=== PATIENT | male | born 1990 | race Caucasian/White ===

== ENCOUNTER 2024-08-05 08:56 | Inpatient (IN) | payer MEDICAID ==
[~2024-08-05] VITALS: Ht 172.7 cm; Wt 95.0 kg
[2024-08-05 11:21] VITALS: BP 136/102; PULSE 106; RESP 16; TEMP 97.9; O2SAT 98
[2024-08-05] MEDS ORDERED: acetaminophen 325mg tablet PO PRN ×2 (11:55)
[2024-08-05] MEDS ORDERED: mag hydrox/Alum hydrox/simeth 30ml oral suspension PO PRN (11:55)
[2024-08-05] MEDS ORDERED: diphenhydrAMINE 25mg capsule PO PRN (11:55)
[2024-08-05] MEDS ORDERED: chlorproMAZINE 25mg tablet PO PRN (11:55)
[2024-08-05] MEDS ORDERED: loperamide 2mg capsule PO PRN (11:55)
[2024-08-05] MEDS ORDERED: traZODone 50mg tablet PO PRN (11:55)
[2024-08-05] MEDS ORDERED: magnesium hydroxide 30ml (MOM) UD suspension PO PRN (11:55)
[2024-08-05] MEDS ORDERED: LAMO200T2 PO (12:45)
[2024-08-05] MEDS ORDERED: OLAN2.5T3 PO (12:45)
[2024-08-05] MEDS: nicotine 21mg patch - 24 hr TD SCH (12:59)
[2024-08-05] MEDS: NICOTINE POLACRILEX 2 MG LOZENGE BC PRN (12:59)
[2024-08-05 13:41] VITALS: RESP 16; O2SAT 98
[2024-08-05 14:43] VITALS: BP 128/98; PULSE 120
--- NOTE | 2024-08-05 16:05 | HISTORY AND PHYSICAL ---
History & Physical - Blank History and Physical CHIEF COMPLIANT GRAVELY DISABLED HISTORY OF PRESENT ILLNESS 34-year-old at [facility] on a 5150 by law enforcement for gravely disabled. CHART REVIEW Pt placed on 5150 for gravely disabled due to inability to safety plan. He's responding to internal stimuli and the voices are telling him not to take meds and that "the energies" will provide. He is unsure why he needs to be here. Pt has a history of Bipolar 1 and Bipolar 2 per patient states diagnosed at separate times, the earliest in his teens. He lives alone in an apartment in [place] which he maintains. He's currently on unemployment as he put in his 2 weeks notice to go on this quest from God for solitude and healing of his mental health difficulties. 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 Pt reported that he was driving to [place] on a spiritual journey. He want to get off all of his medications and is pursuing healing of his mental health issues. Pt reported he has been diagnosed with Bipolar with Psychotic features. And he reported that he feels like he is in a manic episode but then corrected himself and stated, I will use those terms for the point of this conversation Pts car was impounded a week ago as he was pulled over by Police in [place], [place].Pt reported he wasnt drinking, sleeping or eating. His toxic screen showed he had been using THC and drinking ETOH. He has been charge with a DUI and his car was impounded. ASSESSMENT The patient was interviewed in observation room. The patient was actively resting in bed with eyes closed. The patient endorses "all over." The patient endorses "I am having trouble getting everything." "I am not sure when it started." Yes I hear voices." telling me all sorts of stuff between me and Avril." "Avril Yepez she is not talking directly but her spirit is." "I feel like I am redirected back into myself by Avril's spirit." "I "sometimes" see things other people cant see. "I can see the inside of my belly kind of." "I recently stopped taking them (medication) because I wanted to go without them.' I stopped seeing my psychiatrist when I stopped taking my meds." Denies SI. Denies HI. The patient is stable no acute distress noted. The patient is responding to auditory hallucinations, inattentive and disengaged during session. The patient is noted talking to himself during session. Per staff report patient is medication compliant. Will continue daily assessment and adjusting treatment as needed. Closely monitor behavior and response to medication during hospitalization. Discussed treatment plan with patient. ASE/risks and benefits of chosen treatment. He verbalized understanding and consented to treatment. REVIEW OF LABS URINE TOX SCREEN NEGATIVE URINALYSIS NEGATIVE SODIUM 139 POTASSIUM 3.1 CHLORIDE 100 ANION GAP 12 BUN 20 CREATININE 0.90 CALCIUM 9.6 ALBUMIN 4.1 ALT 85 AST 69 IP 62 TSH 0.731 WBC 9.11 RBC 5.02 HEMOGLOBIN 14.7 HEMATOCRIT 42.6 PLATELET 261 MENTAL STATUS EXAM APPEARANCE: AVERAGE HEIGHT OBESE MALE.BUZZED HAIRCUT.FULL FACIAL HAIR.WEARING GREEN SCRUBS. SPEECH: CIRCUMSTANTIAL, NON-SENSUAL EYE CONTACT: AVOIDANT ATTENTION: DISTRACTED AFFECT: CONSTRICTED MOOD: IRRITABLE, ANXIOUS ORIENTATION IMPAIRMENT: NONE MEMORY IMPAIRMENT: NONE HALLUCINATIONS: AUDITORY, VISUAL SUICIDALITY: NONE DELUSIONS: TALKING TO AVRIL YEPEZ'S SPIRIT, RELIGIOUSLY PREOCCUPIED BEHAVIOR: GUARDED JUDGMENT: POOR INSIGHT: POOR TREATMENT Restart OLANZAPINE 5 MG P.O. Q.H.S. Restart LAMICTAL 200 MG P.O. Q.H.S. Restart TENEX 1MG PO QHS Monitoring by Staff, Milieu, Group, and Individual counseling as needed -- According to the [place] Suicide Assessment the above named patient is on Q15 MINUTE CHECKS. [id number]- Patient is unable to formulate a plan to safely meet their basic needs of food, clothing, and longterm due to the severity of their mental illness. We are still titrating medications to an effective dose while ma intaining a therapeutic environment to prevent decompensation and readmission. REVIEW OF Clinical notes 200 MG P.O. Q.H.S. RN notes [X] PCT documentation [X] SW notes Labs [ X] Medications [X] Care trends/care activity [X] Vitals [X] DISCUSSION WITH dough braker [X] Staff SW [X] Treatment Team [X] DISCHARGE UNSURE AT THIS TIME. DISCHARGE HOME ONCE STABLE. Past Psychiatric History Past Psychiatric History MULTIPLE PSYCHIATRIC MENTAL HEALTH HOSPITALIZATIONS BIPOLAR 1 WITH PSYCHOTIC FEATURES ADHD Past Medical History Past Medical History SEE MEDICAL H & P Past Surgical History Past Surgical History DENIES ANY SURGICAL HISTORY Substance Abuse History Substance Abuse History MARIJUANA-OCCASIONALLY ALCOHOL-OCCASIONALLY TOBACCO-OCCASIONALLY ILLICIT DRUGS-DENIES KRATOM-ON AND OFF FOR 4 YEARS Personal History Current Living Situation [facility] Marital & Relationship History NEVER .NO CHILDREN.SINGLE Sexual History DEFER Occupational History UNEMPLOYED Social Activity B[place] 1 [employer] GR[employer] H[employer] Legal History DENIES ANY LEGAL HISTORY History DENIES ANY HISTORY Developmental History Childhood [id number] PHYSICAL-DAD Assessment/Plan Problems/Diagnosis: (1) Bipolar disorder with psychotic features (2) Gravely disabled (3) Drug abuse (4) Poor impulse control (5) Hallucination (6) Paranoid ideation CODING VISIT-PSYCHIATRY Date of Service: August 05, 2024 Billing Provider: RADHA CURRY APRN Psych Common Visit Codes: [id number] INP/OBS CARE (High) RADHA CURRY APRN August 05, 2024 16:05
[2024-08-05 19:00] VITALS: RESP 16; O2SAT 98
[2024-08-05 20:00] VITALS: BP 144/97; PULSE 113; RESP 16; TEMP 98.6; O2SAT 98
[2024-08-05] MEDS: OLANZAPINE 5 MG TABLET PO SCH (21:00)
[2024-08-05] MEDS: lamoTRIgine 100mg tablet PO SCH (21:00)
[2024-08-05] MEDS: guanFACINE 1 mg tablet PO SCH (21:00)
[2024-08-06 07:30] VITALS: BP 151/109; PULSE 90; RESP 16; TEMP 97.5; O2SAT 100
[2024-08-06 08:00] VITALS: RESP 16; O2SAT 100
[2024-08-06] MEDS ORDERED: nicotine 21mg patch - 24 hr TD SCH (08:00)
--- NOTE | 2024-08-06 13:07 | PROGRESS NOTE ---
Progress Note Dictate Providers to CC ~ Central Line/PICC still needed: N\\A Antibiotic Ordered?: No MRSA Education MRSA Education Provided to pt: No Objective Vitals Vital Signs Date Time Temp Pulse Resp B/P (MAP) Pulse Ox O2 Delivery O2 Flow Rate FiO2 08/06/24 08:00 16 100 Room Air 08/06/24 07:30 97.5 90 151/109 (123) Counseling Services Smoking & Tobacco Cessation: > 10 Minutes Problem\\Assessment\\Plan Problems/Diagnosis: (1) Bipolar disorder with psychotic features (2) Gravely disabled (3) Drug abuse (4) Hallucination (5) Poor impulse control (6) Paranoid ideation Psychiatrist's Progress Note Date of Service: August 06, 2024 Notes CHART REVIEW Pt was brought in by brad OATES the hold states he was walking around private property and was unable to talk with the officers about the day or time or how to contact family. conduit worker Abiel came to evaluate client last night and was able to due to client not responsive to questions. Client presented dirty and was able to wake client and introduced myself client would not make eye contact and flat affect. conduit worker asked open in the questions that would sometimes answer what they not yes or no. conduit worker experienced client smiling and laughing as he looked down at the bed. The nurse stated that client before worker came said he does have auditory and visual hallucinations. The worker asked client if someone is telling him not to talk to me. He shook his head yes. Then asked if that person was in the room he shook his head no. Client was not able to communicate when asked about the orientation of day, or time or where he was. Also client could not respond to how he got to assist [facility] since he is from [place]. Client's attention was inattentive and not engaging. Client is unable to safely plan in client meets criteria for 5150 hold for danger to self and gravely disabled. ASSESSMENT The patient was interviewed in observation room. The patient was actively resting in bed with eyes closed. The patient endorses "I feel like mixed moods." "I feel a little bit of everything in away." "I do not think I need the meds so I been refusing them and I don't think they are giving me the correct medications." "I think it is other castillo to be why I am like this." When asked about the voices the patient endorses "Pretty normal I would say." "I don't see things as much we always see things rather it it is your head or with your eyes." When asked about suicidal ideation the patient endorses 'When I get fru strated I have those thoughts but that doesn't mean I have to act on them." Denies SI. Denies HI. "I have a good amount of anxiety going on but I also do not want to relay on gabapentin I want to find other ways to deal with my anxiety." Patient endorses adequate sleep and food intake. The patient is stable no acute distress noted. The patient presents a s a bit anxious, inattentive and disengaged during session. Per staff report patient has been medication noncompliant. Per staff report patient is medication compliant. Will continue daily assessment and adjusting treatment as needed. Closely monitor behavior and response to medication during hospitalization. Results Of any Diagn. Testing REVIEW OF LABS URINE TOX SCREEN NEGATIVE URINALYSIS NEGATIVE SODIUM 139 POTASSIUM 3.1 CHLORIDE 100 ANION GAP 12 BUN 20 CREATININE 0.90 CALCIUM 9.6 ALBUMIN 4.1 ALT 85 AST 69 IP 62 TSH 0.731 WBC 9.11 RBC 5.02 HEMOGLOBIN 14.7 HEMATOCRIT 42.6 PLATELET 261 Appearnace: Disheveled (AVERAGE HEIGHT OBESE MALE.BUZZED HAIRCUT.FULL FACIAL HAIR.WEARING GREEN SCRUBS.) Speech: Pressured, Other (CIRCUMSTANTIAL) Eye Contact: Intense Motor Activity: Normal Affect: Constricted Mood: Anxious, Irritable Orientation Impairment: None Memory Impairment: None Attention: Normal Hallucinations: Auditory, Visual Other: None Suicidality: None Homicidality: None Delusions: Caodaism Behavior: Agitated, Paranoid Insight: Poor Judgment: Poor Treatment The patient is reluctant about taking medications at this time. May need to be Riesed if medication noncompliance continues. OLANZAPINE 5 MG P.O. Q.H.S. LAMICTAL 200 MG P.O. Q.H.S. TENEX 1MG PO QHS Monitoring by Staff, Milieu, Group, and Individual counseling as needed -- According to the [place] Suicide Assessment the above named patient is on Q15 MINUTE CHECKS. [id number]- Patient is unable to formulate a plan to safely meet their basic needs of food, clothing, and half-way due to the severity of their mental illness. We are still titrating medications to an effective dose while maintaining a therapeutic environment to prevent decompensation and readmission. REVIEW OF Clinical notes RN notes [X] PCT documentation [X] SW notes Labs [ X] Medications [X] Care trends/care activity [X] Vitals [X] DISCUSSION WITH flight engineer manager [X] Staff SW [X] Treatment Team [X] Discharge UNSURE AT THIS TIME. DISCHARGE HOME ONCE STABLE. CODING VISIT-PSYCHIATRY Date of Service: August 06, 2024 Billing Provider: RADHA CURRY APRN Psych Common Visit Codes: [id number] INP/OBS CARE(Mod) RADHA CURRY APRN August 06, 2024 13:07
[2024-08-06] MEDS: LORazepam 1 MG tablet PO ONE (13:47)
--- NOTE | 2024-08-06 15:47 | HISTORY AND PHYSICAL ---
History & Physical Providers to ~ History of Present Illness Reason for Admit\\Complaint: Psychosis History of Present Illness Gustavo Cruz is a 34-year-old male with past medical history of bipolar disorder, ADHD, hypertension who was brought to the ED on 5150 hold as patient was walking around private property and was unable to talk with the police officers about the day or time or how to contact his family. Patient was evaluated by the alcoholism worker or patient was on able to respond to any questions. At the time of my assessment, patient is A&Ox3. Patient denies prior ND/CAD, CVA, cardiac arrhythmia, DVT/PE, or GIB. Patient reports intermittent auditory and visual hallucinations but denies SI, HI, chest pain, palpitations, shortness of breath, abdominal pain, n/v/d. Patient is admitted to [facility] for further management of psychosis. Allergies: Coded Allergies: lurasidone (Unverified Allergy, Unknown, 08/05/24) per dad patient had poor reaction to this medication Home Medications Home Medications Active Reported Zyprexa (Olanzapine) 2.5 Mg Tablet 1 Tab PO DAILY Lamictal* (Lamotrigine) 200 Mg Tablet 1 Tab PO DAILY Past Medical History Past Medical History Bipolar disorder ADHD Past Surgical History Surgical History Comment Denies Past Social History Social History Comment Alcohol: Rarely Tobacco: Current smoker, 15 pack year history Illicit drug use: Reports "all kinds of things including opioid, long time ago, denies current use Living situation: Lives at home alone ROS ROS Other than positives in HPI, all 14 review of systems are negative Exam Vitals: Vital Signs Date Time Temp Pulse Resp B/P (MAP) Pulse Ox O2 Delivery O2 Flow Rate FiO2 08/06/24 08:00 16 100 Room Air 08/06/24 07:30 97.5 90 151/109 (123) General: A&Ox 3, NAD HEENT: Normocephalic, PERRLA Neck: Supple, trachea midline, no JVD Chest: Clear to auscultation bilaterally Cardiovascular: RRR, S1&S2 Abdomen: Soft and nontender Extremities: No cyanosis/clubbing/or edema Central Nervous System: CN II-XII intact, no focal deficits Musculoskeletal: No paraspinal muscle tenderness, no muscle spasm Skin: Warm and intact Counseling Services Smoking & Tobacco Cessation: > 10 Minutes Additional Plan # Psychosis # Bipolar disorder -on olanzapine, lamotrigine -continue management under psychiatrist # HTN # Hx substance abuse -start losartan -follow UDS, baseline labs # Nicotine dependence -nicotine patch -I spent a total of 16 minutes on smoking cessation education. I provided extensive counseling regarding smoking cessation. Hospitalist team will continue to follow for patient's medical needs Date of Service: August 06, 2024 Billing Provider: DM TAYLOR Common Visit Codes: [id number] INP/OBS CARE (HIGH) DM TAYLOR August 06, 2024 15:47
[2024-08-06 15:59] LABS: CHOL/HDL RATIO 3.2 (0.00-4.99); CHOLESTEROL 147 MG/DL (0-200); HDL CHOLESTEROL 46 MG/DL (35-60); LDL CHOLESTEROL 72 MG/DL (50-100); TRIGLYCERIDES 297 MG/DL (20-135)
[2024-08-06] MEDS: losartan 50mg tablet PO ONE (16:08)
[2024-08-06 19:00] VITALS: RESP 16; O2SAT 95
[2024-08-06 19:51] LABS: URINE AMPHETAMINE SCREEN NEGATIVE (Neg); URINE BARBITUATE SCREEN NEGATIVE (Neg); URINE BENZODIAZEPINES SCREEN NEGATIVE (Neg); URINE CANNABINOID SCREEN NEGATIVE (Neg); URINE COCAINE SCREEN NEGATIVE (Neg); URINE METHADONE SCREEN NEGATIVE (Neg); URINE OPIATE SCREEN NEGATIVE (Neg); URINE PHENCYCLIDINE SCREEN NEGATIVE (Neg)
[2024-08-06 20:00] VITALS: BP 118/69; PULSE 101; RESP 16; TEMP 97.6; O2SAT 95
[2024-08-07] MEDS: hydrOXYzine 25 MG tablet PO PRN (05:21)
[2024-08-07 07:00] VITALS: BP 125/85; PULSE 99; RESP 16; TEMP 97.6; O2SAT 97
[2024-08-07] MEDS: losartan 50mg tablet PO SCH (07:53)
[2024-08-07 08:00] VITALS: RESP 16; O2SAT 97
[2024-08-07] MEDS ORDERED: nicotine 7mg patch - 24hr TD SCH (08:00)
[2024-08-07 08:48] LABS: BASOPHILS # (AUTO) 0.1 X10'3 (0-0.2); BASOPHILS % (AUTO) 0.8 % (0-1); EOSINOPHILS # (AUTO) 0.3 X10'3 (0-0.9); HEMOGLOBIN 15.9 g/dl (14.0-17.9); LYMPHOCYTES # (AUTO) 1.6 X10'3 (1.1-4.8); MEAN CORPUSCULAR HEMOGLOBIN 29.6 PG (27.0-31.0); MEAN CORPUSCULAR HGB CONC 33.9 g/dL (33.0-36.5); MEAN CORPUSCULAR VOLUME 87.3 FL (78-98); MEAN PLATELET VOLUME 8.4 FL (7.4-10.4); MONOCYTES # (AUTO) 0.5 X10'3 (0-0.9); MONOCYTES % (AUTO) 6.4 % (2-12); NEUTROPHILS # (AUTO) 4.6 X10'3 (1.8-7.7); NEUTROPHILS % (AUTO) 65.8 % (42-75); PLATELET COUNT 266 X10'3 (140-440); RED BLOOD COUNT 5.38 X10'6 (4.70-6.10); RED CELL DISTRIBUTION WIDTH 13.6 % (11.5-14.5); WHITE BLOOD COUNT 7.1 X10'3 (4.5-11.0)
[2024-08-07 09:36] LABS: ALANINE AMINOTRANSFERASE 226 U/L (12-78); ALBUMIN 3.9 G/DL (3.4-5.0); ALBUMIN/GLOBULIN RATIO 1.3 (1.1-1.5); ANION GAP 7 (8-16); ASPARTATE AMINO TRANSFERASE 75 U/L (10-37); BILIRUBIN,TOTAL 0.5 MG/DL (0.1-1.0); BLOOD UREA NITROGEN 11 MG/DL (7-18); BUN/CREATININE RATIO 12.6 (10.0-20.0); CALCIUM 8.9 MG/DL (8.5-10.1); CHLORIDE 105 MMOL/L (99-107); CREATININE 0.87 MG/DL (0.60-1.10); GLUCOSE 102 MG/DL (70-104); POTASSIUM 4.3 MMOL/L (3.5-5.1); SODIUM 137 MMOL/L (135-145); TOTAL CARBON DIOXIDE 24.6 MMOL/L (24-32); TOTAL PROTEIN 6.9 G/DL (6.4-8.2); eCRCL 115 ML/MIN; eGFR > 90 ML/MIN
[2024-08-07 10:03] LABS: ALKALINE PHOSPHATASE 69 IU/L (46-116)
--- NOTE | 2024-08-07 11:18 | PROGRESS NOTE ---
Progress Note Dictate Providers to CC ~ Central Line/PICC still needed: N\\A Antibiotic Ordered?: No MRSA Education MRSA Education Provided to pt: No Objective Vitals Vital Signs Date Time Temp Pulse Resp B/P (MAP) Pulse Ox O2 Delivery O2 Flow Rate FiO2 08/07/24 08:00 16 97 Room Air 08/07/24 07:53 99 08/07/24 07:00 97.6 125/85 (98) Lab Results: 08/07/24 0820 08/07/24 0837 Counseling Services Smoking & Tobacco Cessation: > 10 Minutes Problem\\Assessment\\Plan Problems/Diagnosis: (1) Bipolar disorder with psychotic features Psychiatrist's Progress Note Date of Service: August 07, 2024 Notes CHART REVIEW Pt placed on 5150 for gravely disabled due to inability to safety plan. He's responding to internal stimuli and the voices are telling him not to take meds and that "the energies" will provide. He is unsure why he needs to be here. Pt has a history of Bipolar 1 and Bipolar 2 per patient states diagnosed at separate times, the earliest in his teens. He lives alone in an apartment in [place] which he maintains. He's currently on unemployment as he put in his 2 weeks notice to go on this quest from God for solitude and healing of his mental health difficulties. 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 Pt reported that he was driving to [place] on a spiritual journey. He want to get off all of his medications and is pursuing healing of his mental health issues. Pt reported he has been diagnosed with Bipolar with Psychotic features. And he reported that he feels like he is in a manic episode but then corrected himself and stated, I will use those terms for the point of this conversation Pts car was impounded a week ago as he was pulled over by Police in [place], [place].Pt reported he wasnt drinking, sleeping or eating. His toxic screen showed he had been using THC and drinking ETOH. He has been charge with a DUI and his car was impounded. ASSESSMENT The patient was interviewed in observation room. The patient was actively pacing hallway. The patient endorses "I am feeling pretty well today." "I had side effects when I took the tenex; I can only take guanfacine ER." Despite me calling the patient's preferred pharmacy and verified tenex dose and frequency with him presents, the patient is still reluctant and taking Tenex. "I am feeling a lot better; so that is good news." "I pace even when I am not manic." "When I pray I do hear voices even when I am manic or not." "I do feel some of the hypomanic energy but it is low energy." "I do see things in my head a lot and I believe that is pretty human." "It is a real thing that i talk to Ivonne Bartholomew's spirit, that is normal." "I believe I will be locked in here until I change my spiritual beliefs." "I am not manic I am on a spiritual voyage." I do not feel I need meds I just need to continue my spiritual voyage with the Shamans." Denies SI. Denies HI. The patient is stable no acute distress noted. The patient presents as a bit anxious, delusional, religiously preoccupied, and disengaged during session. The patient noted wringing of the hands. The patient seems to be minimizing his symptoms. Per staff report patient has been medication compliant. Will continue daily assessment and adjusting treatment as needed. Closely monitor behavior and response to medication during hospitalization. Results Of any Diagn. Testing REVIEW OF LABS URINE TOX SCREEN NEGATIVE URINALYSIS NEGATIVE SODIUM 139 POTASSIUM 3.1 CHLORIDE 100 ANION GAP 12 BUN 20 CREATININE 0.90 CALCIUM 9.6 ALBUMIN 4.1 ALT 85 AST 69 IP 62 TSH 0.731 WBC 9.11 RBC 5.02 HEMOGLOBIN 14.7 HEMATOCRIT 42.6 PLATELET 261 Appearnace: Disheveled (AVERAGE HEIGHT OBESE MALE.BUZZED HAIRCUT.FULL FACIAL HAIR.WEARING GREEN SCRUBS) Speech: Pressured (DISORGANIZED), Other (CIRCUMSTANTIAL) Eye Contact: Other (INTERMITTENT) Motor Activity: Normal Affect: Constricted Orientation Impairment: None Memory Impairment: None Attention: Distracted Hallucinations: Auditory, Visual Other: None Suicidality: None Homicidality: None Delusions: Lutheran Behavior: Hyperactive Insight: Poor Judgment: Poor Treatment Increase OLANZAPINE 10 MG P.O. Q.H.S. LAMICTAL 200 MG P.O. Q.H.S. TENEX 1MG PO QHS Monitoring by Staff, Milieu, Group, and Individual counseling as needed -- According to the [place] Suicide Assessment the above named patient is on Q15 MINUTE CHECKS. [id number]- Patient is unable to formulate a plan to safely meet their basic needs of food, clothing, and correction due to the severity of their mental illness. We are still titrating medications to an effective dose while maintaining a therapeutic environment to prevent decompensation and readmission. REVIEW OF Clinical notes RN notes [X] PCT documentation [X] SW notes Labs [ X] Medications [X] Care trends/care activity [X] Vitals [X] DISCUSSION WITH therapeutic support staff [X] Staff SW [X] Treatment Team [X] Discharge UNSURE AT THIS TIME. DISCHARGE HOME ONCE STABLE. CODING VISIT-PSYCHIATRY Date of Service: August 07, 2024 Billing Provider: RADHA CURRY APRN Psych Common Visit Codes: [id number] INP/OBS CARE(Mod) RADHA CURRY APRN August 07, 2024 11:18
[2024-08-07] MEDS: guanFACINE 1 mg tablet PO SCH (14:57)
[2024-08-07 19:28] VITALS: RESP 16; O2SAT 100
[2024-08-07 19:29] VITALS: BP 106/66; PULSE 91; RESP 16; TEMP 98; O2SAT 98
[2024-08-07] MEDS: OLANZAPINE 5 MG TABLET PO SCH (20:32)
[2024-08-08 07:30] VITALS: BP 126/82; PULSE 88; RESP 16; TEMP 97.6; O2SAT 99
--- NOTE | 2024-08-08 07:45 | PROGRESS NOTE ---
Daily Progress Note Providers to CC ~ Antibiotic Timeout Antibiotic Ordered?: No Subjective CHIEF COMPLAINT NONE REVIEW OF SYSTEMS NEGATIVE FOR ALL 10 SYSTEMS REVIEWED Objective Vital Signs Date Time Temp Pulse Resp B/P (MAP) Pulse Ox O2 Delivery O2 Flow Rate FiO2 08/07/24 19:29 98.0 91 16 106/66 (79) 98 Room Air Result Diagram: 08/07/24 0820 08/07/24 0837 PATIENT IS ALERT AND ORIENTED X4 IN NO ACUTE DISTRESS AMBULATING HEENT NORMOCEPHALIC NONTRAUMATIC HEAD PERRLA. EOMI. CVS FIRST AND SECOND HEART SOUNDS REGULAR RATE RHYTHM NO MURMURS GALLOPS OR RUBS RESPIRATORY SYSTEM IS CLEAR TO AUSCULTATE BILATERALLY NO RALES RHONCHI CRACKLES OR WHEEZING ABDOMEN IS SOFT SCAPHOID BOWEL SOUNDS ARE POSITIVE NONTENDER NONDISTENDED EXTREMITIES NO CLUBBING CYANOSIS OR EDEMA Problem\Assessment\Plan Additional Plan # Psychosis # Bipolar disorder -on olanzapine, lamotrigine -continue management per psychiatrist # HTN -well controlled # Hx substance abuse -start losartan -follow UDS, baseline labs # transaminitis- Monitor LFTs Check acute hep panel Possibly secondary to antipsychotics Check abdominal ultrasound # Nicotine dependence -nicotine patch Date of Service: August 08, 2024 Billing Provider: SUDEEP FLORENCE MD Common Visit Codes: [id number] INP/OBS CARE(LOW) SUDEEP FLORENCE MD August 08, 2024 07:45
[2024-08-08 08:00] VITALS: RESP 16; O2SAT 99
--- NOTE | 2024-08-08 14:13 | PROGRESS NOTE ---
Progress Note Dictate Providers to CC ~ Central Line/PICC still needed: N\\A Antibiotic Ordered?: No MRSA Education MRSA Education Provided to pt: No Objective Vitals Vital Signs Date Time Temp Pulse Resp B/P (MAP) Pulse Ox O2 Delivery O2 Flow Rate FiO2 08/08/24 08:16 88 08/08/24 07:30 97.6 16 126/82 (97) 99 08/07/24 19:29 Room Air Lab Results: 08/07/24 0820 08/07/24 0837 Problem\\Assessment\\Plan Problems/Diagnosis: (1) Bipolar disorder with psychotic features (2) Gravely disabled (3) Drug abuse (4) Hallucination (5) Poor impulse control (6) Paranoid ideation Psychiatrist's Progress Note Date of Service: August 08, 2024 Notes CHART REVIEW Pt placed on 5150 for gravely disabled due to inability to safety plan. He's responding to internal stimuli and the voices are telling him not to take meds and that "the energies" will provide. He is unsure why he needs to be here. Pt has a history of Bipolar 1 and Bipolar 2 per patient states diagnosed at separate times, the earliest in his teens. He lives alone in an apartment in [place] which he maintains. He's currently on unemployment as he put in his 2 weeks notice to go on this quest from God for solitude and healing of his mental health difficulties. 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 Pt reported that he was driving to [place] on a spiritual journey. He want to get off all of his medications and is pursuing healing of his mental health issues. Pt reported he has been diagnosed with Bipolar with Psychotic features. And he reported that he feels like he is in a manic episode but then corrected himself and stated, I will use those terms for the point of this conversation Pts car was impounded a week ago as he was pulled over by Police in [place], [place].Pt reported he wasnt drinking, sleeping or eating. His toxic screen showed he had been using THC and drinking ETOH. He has been charge with a DUI and his car was impounded. ASSESSMENT The patient was interviewed in observation room. The patient was actively pacing hallway. The patient endorses "Good.' "it is more comfortable to be in my room." "it just feels like everyone is going through there own and a lot of energy. I am having a hard time talking right but I don't know why but I think it is the spiritual thing but it is hard to describe." "It feels disgusted and making it hard to talk." "I think it is related to the alex in a lot of ways." "My anxiety comes and goes." "it is not quit anxiety, no its anxiety but it has different qualities at different times." "It feels like it is being projected onto me." It passes eventually I just need to roll with it.' I believe it is more spiritual rooted. It doesn't feel like me it feels like other energies that are not me." "I am paranoid but I don't know what the purpose of it is." "Sometimes voices would come and mock and sometimes they will be supportive." "I also feel it does not require hospitalization either." "I just need to go through the process." "I think it is related to the spiritual healing." The patient endorses "no stop dude stop." "The patient endorses "I am talking to a part of my body right now." "It is Kind of fun to be all over the place sometimes but not all the time." "I feel like I am talking to different spirts in my body." Denies SI. Denies HI. The patient is stable no acute distress noted. The patient presents as a bit anxious, a bit delusional, religiously preoccupied, hyperverbal, responding to internal stimuli, and engaged during session. The patient noted talking to himself during session. Per staff report patient has been medication compliant. Will continue daily assessment and adjusting treatment as needed. Closely monitor behavior and response to medication during hospitalization. Results Of any Diagn. Testing REVIEW OF LABS URINE TOX SCREEN NEGATIVE URINALYSIS NEGATIVE SODIUM 139 POTASSIUM 3.1 CHLORIDE 100 ANION GAP 12 BUN 20 CREATININE 0.90 CALCIUM 9.6 ALBUMIN 4.1 ALT 85 AST 69 IP 62 TSH 0.731 WBC 9.11 RBC 5.02 HEMOGLOBIN 14.7 HEMATOCRIT 42.6 PLATELET 261 Appearnace: Other (AVERAGE HEIGHT OBESE MALE.BUZZED HAIRCUT.FULL FACIAL HAIR.WEARING GREEN SCRUBS) Speech: Tangential, Pressured, Other (CIRCUMSTANTIAL.WORD SALAD.HYPERVERABLE) Eye Contact: Intense Motor Activity: Normal Affect: Labile Mood: Euphoric Orientation Impairment: None Memory Impairment: None Attention: Distracted Hallucinations: None Other: None Suicidality: None Homicidality: None Delusions: Paraniod, Latter Day Behavior: Hyperactive Insight: Poor Judgment: Poor Treatment Increase OLANZAPINE 15 MG P.O. Q.H.S. Increase LAMICTAL 300 MG P.O. Q.H.S. TENEX 1MG PO QHS Monitoring by Staff, Milieu, Group, and Individual counseling as needed -- According to the [place] Suicide Assessment the above named patient is on Q15 MINUTE CHECKS. [id number]- Patient is unable to formulate a plan to safely meet their basic needs of food, clothing, and long term due to the severity of their mental illness. We are still titrating medications to an effective dose while maintaining a therapeutic environment to prevent decompensation and readmission. REVIEW OF Clinical notes RN notes [X] PCT documentation [X] SW notes Labs [ X] Medications [X] Care trends/care activity [X] Vitals [X] DISCUSSION WITH traveling construction superintendent [X] Staff SW [X] Treatment Team [X] Discharge UNSURE AT THIS TIME. DISCHARGE HOME ONCE STABLE. CODING VISIT-PSYCHIATRY Date of Service: August 08, 2024 Billing Provider: RADHA CURRY APRN Psych Common Visit Codes: [id number] INP/OBS CARE(Mod) RADHA CURRY APRN August 08, 2024 14:13
[2024-08-08] MEDS: diphenhydrAMINE 50 mg/ml inj IM ONE (15:09)
[2024-08-08] MEDS: OLANZapine **IM** 10 mg inj. IM ONE (15:09)
[2024-08-08] MEDS: diazepam inj 5 MG/ML inj. IV ONE (15:10)
[2024-08-08 18:55] VITALS: RESP 16; O2SAT 100
[2024-08-08 19:32] VITALS: BP 105/70; PULSE 100; RESP 16; TEMP 98; O2SAT 96
[2024-08-08] MEDS: lamoTRIgine 100mg tablet PO SCH (20:17)
[2024-08-08] MEDS: OLANZAPINE 5 MG TABLET PO SCH (20:17)
[2024-08-09 07:35] VITALS: RESP 16; O2SAT 97
[2024-08-09 07:38] VITALS: BP 118/88; PULSE 79; RESP 16; TEMP 97.3; O2SAT 97
--- NOTE | 2024-08-09 11:46 | PROGRESS NOTE ---
Progress Note Dictate Providers to CC ~ Central Line/PICC still needed: N\\A Antibiotic Ordered?: No MRSA Education MRSA Education Provided to pt: No Objective Vitals Vital Signs Date Time Temp Pulse Resp B/P (MAP) Pulse Ox O2 Delivery O2 Flow Rate FiO2 08/09/24 07:38 97.3 79 16 118/88 (98) 97 Room Air Lab Results: 08/07/24 0820 08/07/24 0837 Problem\\Assessment\\Plan Problems/Diagnosis: (1) Bipolar disorder with psychotic features (2) Gravely disabled (3) Drug abuse (4) Hallucination (5) Poor impulse control (6) Paranoid ideation Psychiatrist's Progress Note Date of Service: August 09, 2024 Notes CHART REVIEW Pt placed on 5150 for gravely disabled due to inability to safety plan. He's responding to internal stimuli and the voices are telling him not to take meds and that "the energies" will provide. He is unsure why he needs to be here. Pt has a history of Bipolar 1 and Bipolar 2 per patient states diagnosed at separate times, the earliest in his teens. He lives alone in an apartment in [place] which he maintains. He's currently on unemployment as he put in his 2 weeks notice to go on this quest from God for solitude and healing of his mental health difficulties. 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 Pt reported that he was driving to [place] on a spiritual journey. He want to get off all of his medications and is pursuing healing of his mental health issues. Pt reported he has been diagnosed with Bipolar with Psychotic features. And he reported that he feels like he is in a manic episode but then corrected himself and stated, I will use those terms for the point of this conversation Pts car was impounded a week ago as he was pulled over by Police in [place], [place].Pt reported he wasnt drinking, sleeping or eating. His toxic screen showed he had been using THC and drinking ETOH. He has been charge with a DUI and his car was impounded. ASSESSMENT The patient was interviewed in observation room. The patient was actively resting in bed. The patient endorses "I am doing alright some waves irritably toady." 'I can feel everyone's energy here an I don't like it." 'I am just playing a part to get through this experience." "I feel less fragmented and more coherent, today." "I remember flipping through different perspectives, yesterday." "If you need me to tell you 100% I will take my meds when I leave I will tell you that to get out of here." "I might walk out of here and be totally fine so why would I commit to taking the meds." "I hear voices telling me to not tell her about use." "It is common for people to hear voices it is part of a spiritual healing." "I think the spirit is healing me now that is why I feel I don't need medication." "I don't really see anything right now." The patient noted tapping hand quickly on the chair and when I looked at his hands the patient endorses "Am I not allowed to do that; will that make you think I am manic." Denies SI Denies HI. Denies VH. The patient is stable no acute distress noted. The patient presents as a bit irritable, hyperverbal, and engaged during session. Per staff report patient has been medication compliant. Per staff report no abnormal behaviors noted. Will continue daily assessment and adjusting treatment as needed. Closely monitor behavior and response to medication during hospitalization. Results Of any Diagn. Testing REVIEW OF LABS URINE TOX SCREEN NEGATIVE URINALYSIS NEGATIVE SODIUM 139 POTASSIUM 3.1 CHLORIDE 100 ANION GAP 12 BUN 20 CREATININE 0.90 CALCIUM 9.6 ALBUMIN 4.1 ALT 85 AST 69 IP 62 TSH 0.731 WBC 9.11 RBC 5.02 HEMOGLOBIN 14.7 HEMATOCRIT 42.6 PLATELET 261 Appearnace: Other (AVERAGE HEIGHT OBESE MALE.BUZZED HAIRCUT.FULL FACIAL HAIR.WEARING GREEN SCRUBS) Speech: Tangential, Other (CIRCUMSTANTIAL) Eye Contact: Intense Motor Activity: Normal Affect: Full Mood: Irritable Orientation Impairment: Place Memory Impairment: None Attention: Distracted (AT TIMES) Hallucinations: Auditory Suicidality: None Homicidality: None Delusions: Gnosticism Behavior: Hyperactive Insight: Poor Judgment: Poor Treatment OLANZAPINE 15 MG P.O. Q.H.S. LAMICTAL 300 MG P.O. Q.H.S. TENEX 1MG PO QHS Monitoring by Staff, Milieu, Group, and Individual counseling as needed -- According to the [place] Suicide Assessment the above named patient is on Q15 MINUTE CHECKS. [id number]- Patient is unable to formulate a plan to safely meet their basic needs of food, clothing, and usp due to the severity of their mental illness. We are still titrating medications to an effective dose while maintaining a therapeutic environment to prevent decompensation and readmission. Total time spent 45 minutes on REVIEW OF Clinical notes RN notes [X] PCT documentation [X] SW notes Labs [ X] Medications [X] Care trends/care activity [X] Vitals [X] DISCUSSION WITH high school drafting teacher [X] Staff SW [X] Treatment Team [X] Discharge UNSURE AT THIS TIME. DISCHARGE HOME ONCE STABLE. CODING VISIT-PSYCHIATRY Date of Service: August 09, 2024 Billing Provider: RADHA CURRY APRN Psych Common Visit Codes: [id number] INP/OBS CARE(Mod) RADHA CURRY APRN August 09, 2024 11:46
[2024-08-09] MEDS: gabapentin 300mg capsule PO SCH (12:42)
[2024-08-09 19:00] VITALS: RESP 18
[2024-08-09] MEDS ORDERED: gabapentin 300mg capsule PO SCH (20:00)
[2024-08-09 20:08] VITALS: BP 137/85; PULSE 95; RESP 18; TEMP 97.7; O2SAT 96
[2024-08-10 07:00] VITALS: RESP 16; O2SAT 95
[2024-08-10 08:00] VITALS: BP 119/72; PULSE 94; RESP 16; TEMP 97.6; O2SAT 95
--- NOTE | 2024-08-10 13:46 | PROGRESS NOTE ---
Progress Note Dictate Providers to CC ~ Central Line/PICC still needed: N\\A Antibiotic Ordered?: No MRSA Education MRSA Education Provided to pt: No Objective Vitals Vital Signs Date Time Temp Pulse Resp B/P (MAP) Pulse Ox O2 Delivery O2 Flow Rate FiO2 08/10/24 08:03 97 08/10/24 08:00 97.6 16 119/72 (88) 95 Room Air Lab Results: 08/07/24 0820 08/07/24 0837 Counseling Services Smoking & Tobacco Cessation: > 10 Minutes Problem\\Assessment\\Plan Problems/Diagnosis: (1) Bipolar disorder with psychotic features (2) Gravely disabled (3) Drug abuse (4) Hallucination (5) Poor impulse control (6) Paranoid ideation Psychiatrist's Progress Note Date of Service: August 10, 2024 Notes CHART REVIEW Pt placed on 5150 for gravely disabled due to inability to safety plan. He's responding to internal stimuli and the voices are telling him not to take meds and that "the energies" will provide. He is unsure why he needs to be here. Pt has a history of Bipolar 1 and Bipolar 2 per patient states diagnosed at separate times, the earliest in his teens. He lives alone in an apartment in [place] which he maintains. He's currently on unemployment as he put in his 2 weeks notice to go on this quest from God for solitude and healing of his mental health difficulties. 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 Pt reported that he was driving to [place] on a spiritual journey. He want to get off all of his medications and is pursuing healing of his mental health issues. Pt reported he has been diagnosed with Bipolar with Psychotic features. And he reported that he feels like he is in a manic episode but then corrected himself and stated, I will use those terms for the point of this conversation Pts car was impounded a week ago as he was pulled over by Police in [place], [place].Pt reported he wasnt drinking, sleeping or eating. His toxic screen showed he had been using THC and drinking ETOH. He has been charge with a DUI and his car was impounded. ASSESSMENT The patient was interviewed in observation room. The patient was actively resting in bed with eyes open. The patient endorses "I was released by the court and I don't have anything to say." "I am just waiting on my social service assistant for her to tell me how I will get to my car so that I can drive back to [place]." The patient is stable no acute distress noted. The patient presents as uncooperative and disengaged during session. Per staff report patient has been medication compliant. Per staff report no abnormal behaviors noted. Will continue daily assessment and adjusting treatment as needed. Closely monitor behavior and response to medication during hospitalization. Results Of any Diagn. Testing REVIEW OF LABS URINE TOX SCREEN NEGATIVE URINALYSIS NEGATIVE SODIUM 139 POTASSIUM 3.1 CHLORIDE 100 ANION GAP 12 BUN 20 CREATININE 0.90 CALCIUM 9.6 ALBUMIN 4.1 ALT 85 AST 69 IP 62 TSH 0.731 WBC 9.11 RBC 5.02 HEMOGLOBIN 14.7 HEMATOCRIT 42.6 PLATELET 261 Appearnace: Other (AVERAGE HEIGHT OBESE MALE.BUZZED HAIRCUT.FULL FACIAL HAIR.WEARING GREEN SCRUBS) Speech: Impoverished Eye Contact: Avoidant Motor Activity: Normal Affect: Constricted Behavior: Guarded Insight: Poor Judgment: Poor Treatment OLANZAPINE 15 MG P.O. Q.H.S. LAMICTAL 300 MG P.O. Q.H.S. TENEX 1MG PO QHS Monitoring by Staff, Milieu, Group, and Individual counseling as needed -- According to the [place] Suicide Assessment the above named patient is on Q15 MINUTE CHECKS. VOLUNTARY Total time spent 20 minutes on REVIEW OF Clinical notes RN notes [X] PCT documentation [X] SW notes Labs [ X] Medications [X] Care trends/care activity [X] Vitals [X] DISCUSSION WITH sheet metal shop foreman [X] Staff SW [X] Treatment Team [X] Discharge DISCHARGE HOME TOMORROW. PATIENT WAS RELEASED BY THE COURT CODING VISIT-PSYCHIATRY Date of Service: August 10, 2024 Billing Provider: RADHA CURRY APRN Psych Common Visit Codes: [id number] INP/OBS CARE(Low) RADHA CURRY APRN August 10, 2024 13:46
[2024-08-10] MEDS ORDERED: TEN1T PO (15:38)
[2024-08-10] MEDS ORDERED: LAMO100T PO (15:38)
[2024-08-10] MEDS ORDERED: OLAN5TAB75 PO (15:38)
[2024-08-10] MEDS ORDERED: gabapentin capsule PO (15:38)
[2024-08-10] MEDS ORDERED: LOSA50TA64 PO (15:38)
--- NOTE | 2024-08-10 18:33 | PROGRESS NOTE ---
Daily Progress Note Providers to CC ~ Antibiotic Timeout Antibiotic Ordered?: No Subjective Patient was seen in his room , he denies any concerns and feeling better Objective Vital Signs Date Time Temp Pulse Resp B/P (MAP) Pulse Ox O2 Delivery O2 Flow Rate FiO2 08/10/24 08:03 97 08/10/24 08:00 97.6 16 119/72 (88) 95 Room Air Result Diagram: 08/07/24 0820 08/07/24 0837 General-patient not in any acute distress, alert awake , age-appropriate, looks comfortable HEENT-atraumatic normocephalic, neck supple without elevated JVD, no thyromegaly or carotid bruit. No lymphadenopathy bilaterally. Eyes-no icterus or pallor seen in eyes Chest-clear to auscultation bilaterally, breathing nonlabored no tachypnea, no wheezing, no crepitation, no crackles. Heart-S1-S2 normal, regular heart rate no murmur Abdomen bowel sounds positive on auscultation, soft nondistended nontender no guarding, no rigidity Skin no active skin rash Neurology-grossly intact, nonfocal alert awake oriented Extremity- no pedal edema able to move all 4 extremities, ambulates Psychiatry - patient is not confused or agitated cooperated during physical examination Problem\Assessment\Plan # Psychosis # Bipolar disorder -on olanzapine, lamotrigine -continue management per psychiatrist # HTN -well controlled-on losartan # Hx substance abuse Urine drug screen negative # transaminitis- Monitor LFTs, hepatic panel . Possibly secondary to antipsychotics abdominal ultrasound was cancelled # Nicotine dependence -nicotine patch We will continue to follow from hospitalist team as needed or as per protocol Date of Service: August 10, 2024 Billing Provider: HUGO GARCIA MD Common Visit Codes: [id number] INP/OBS CARE(LOW) HUGO GARCIA MD August 10, 2024 18:33
[2024-08-10 19:00] VITALS: RESP 18; O2SAT 99
[2024-08-10 20:00] VITALS: BP 115/67; PULSE 92; RESP 18; TEMP 98.5; O2SAT 99
[2024-08-11 07:30] VITALS: BP 115/73; PULSE 82; RESP 16; TEMP 97.4; O2SAT 96
--- NOTE | 2024-08-11 07:50 | DISCHARGE SUMMARY ---
Discharge Summary Providers to CC ~ Discharge Summary Admission Diagnosis: BIPOLA DISORDER WITH PSYCHOTIC FEATURES. GRAVELY DISABLED. HALLUCINATIONS Hospital Course DATE OF ADMISSION: DATE OF DISCHARGE: Discharge Diagnosis\\Comment: BIPOLA DISORDER WITH PSYCHOTIC FEATURES. GRAVELY DISABLED. HALLUCINATIONS DRUG ABUSE Operations\\Procedures: NONE Consultants: MEDICAL TEAM Complications: NONE Condition on DC: Stable 2 or more antipsychotic used: No 2/more antipsychotic addressed: No Does Patient smoke: Yes Smoking education given.: Yes New Medications: [gabapentin capsule] () 300 MG CAPSULE 600 MG PO BID for 30 Days, #120 Guanfacine Hcl (TENEX tablet) 1 Mg Tablet 1 MG PO DAILY for 30 Days, #30 TAB Lamotrigine (LaMICtal tablet) 100 Mg Tablet 300 MG PO HS for 30 Days, #90 TAB Losartan Potassium (Losartan Potassium) 50 Mg Tablet 50 MG PO DAILY for 30 Days, #30 TAB Olanzapine (Olanzapine) 5 Mg Tablet 15 MG PO HS for 30 Days, #90 TAB Discontinued Medications: Lamotrigine* (Lamictal*) 200 Mg Tablet 1 TAB PO DAILY, TAB Olanzapine (Zyprexa) 2.5 Mg Tablet 1 TAB PO DAILY, TAB 0 Refills Discharge Summary: CHART REVIEW Pt placed on 5150 for gravely disabled due to inability to safety plan. He's responding to internal stimuli and the voices are telling him not to take meds and that "the energies" will provide. He is unsure why he needs to be here. Pt has a history of Bipolar 1 and Bipolar 2 per patient states diagnosed at separate times, the earliest in his teens. He lives alone in an apartment in [place] which he maintains. He's currently on unemployment as he put in his 2 weeks notice to go on this quest from God for solitude and healing of his mental health difficulties. 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 Pt reported that he was driving to [place] on a spiritual journey. He want to get off all of his medications and is pursuing healing of his mental health issues. Pt reported he has been diagnosed with Bipolar with Psychotic features. And he reported that he feels like he is in a manic episode but then corrected himself and stated, I will use those terms for the point of this conversation Pts car was impounded a week ago as he was pulled over by Police in [place], [place].Pt reported he wasnt drinking, sleeping or eating. His toxic screen showed he had been using THC and drinking ETOH. He has been charge with a DUI and his car was impounded. Patient actively seen and examined on day of discharge 08/11/2024, by myself, AMANDA Giron. The patient is interviewed in observation room. The patient endorses "Good." Denies SI. Denies HI. Denies AVH. Gustavo was able to formulate a safety plan which includes going to the emergency room if symptoms return or worsen. Call [phone] or [phone] for immediate assistance if necessary. During his hospital stay, Gustavo receive multidisciplinary treatment he adhered to his medication regimen and has been pleasant and cooperative. She denies any suicidal ideation (SI), homicidal ideation (HI), auditory hallucination (AH), visual hallucination (VH). Staff has reported no behavioral issues, and the p atient has been sleeping well, adequate food intake, with no mood or behavioral changes noted. The decision to discharge Gustavo was made in consensus with the treatment team, including the group social worker, community engagement leader, and nurse charge rn on duty. The patient was discharged with a 30 day supply of medications. MENTAL STATUS EXAM APPEARANCE: APPROPRIATELY. DRESSED IN STREET CLOTHING. SPEECH: CIRCUMSTANCE EYE CONTACT: NORMAL AFFECT: CONGRUENT WITH MOOD MOOD: "GOOD" ORIENTATION IMPAIRMENT: NONE MEMORY IMPAIRMENT: NONE ATTENTION: NORMAL HALLUCINATIONS: NONE SUICIDALITY: NONE HOMICIDALITY: NONE DELUSIONS: NONE BEHAVIOR: COOPERATIVE, PLEASANT JUDGMENT: FAIR INSIGHT: FAIR Continue Current Inpatient Psychotropic Regimen @ home Follow-Up with Psychiatric Provider Safety Plan Discussed DISCHARGE CONDITION: Her readiness for discharge is supported by his stable mental status, adherence to treatment, and proactive approach to managing his mental health. Denies SI. Denies HI. Denies AVH. The patient has been informed to continue follow-up care to ensure ongoing support and monitoring. Patient discharged home. *Problems/Diagnosis: (1) Bipolar disorder with psychotic features (2) Gravely disabled (3) Drug abuse (4) Hallucination (5) Poor impulse control (6) Paranoid ideation Total Time Spent on D/C: > 30 Minutes Counseling Services Smoking & Tobacco Cessation: > 10 Minutes CODING VISIT-PSYCHIATRY Date of Service: August 11, 2024 Billing Provider: RADHA CURRY APRN Psych Common Visit Codes: [id number] DISCH DAY >30min RADHA CURRY APRN August 11, 2024 07:50
[2024-08-11 08:40] VITALS: BP_SYST 115; PULSE 82
== END 2024-08-11 12:14 | disposition home or self-care (01) | DRG 753 ==
LOC: UNDOADMIN 11:20 → ADULT MH 11:20
PROVIDERS: ADMIT Psychiatry & Neurology Psychiatry; ATTEND Psychiatry & Neurology Psychiatry
PROC: GZHZZZZ Group Psychotherapy (ICD-10-PCS; principal; 2024-08-05)
PROC: GZ56ZZZ Individual Psychotherapy, Supportive (ICD-10-PCS; 2024-08-05)
DX: F31.9 Bipolar disorder, unspecified (principal); R44.3 Hallucinations, unspecified; E66.9 Obesity, unspecified; Z91.148 Patient's other noncompliance with medication regimen for other reason; F17.210 Nicotine dependence, cigarettes, uncomplicated; F19.90 Other psychoactive substance use, unspecified, uncomplicated; F41.9 Anxiety disorder, unspecified; F60.0 Paranoid personality disorder; I10 Essential (primary) hypertension; F90.9 Attention-deficit hyperactivity disorder, unspecified type; R74.01 Elevation of levels of liver transaminase levels; Z56.0 Unemployment, unspecified; Z79.899 Other long term (current) drug therapy
CPT/HCPCS: 36415; 80053; 80061; 80305; 85025; 87081; 99285; J1200; J3360; J3490; Q0177